=== PATIENT | female | born 1935 | race African-American/Black ===

== ENCOUNTER 2017-03-30 11:38 | Inpatient (IN) | payer OTHER ==
[~2017-03-30] VITALS: Ht 160 cm; Wt 86.0 kg
[~2017-03-30 11:38] MED LIST: ASPI-110 PO; OMEP20TA PO; PREG25 PO; VITA1000 PO
[2017-03-30] MEDS ORDERED: PROPOFOL 200 MG/20 ML AMP IV ONE (12:00)
[2017-03-30] MEDS ORDERED: ESMOLOL HCL 100 MG/10 ML VIAL IV ONE (12:00)
[2017-03-30] MEDS ORDERED: LACTATED RINGER'S 1000 ML INJ 1,000 ML IV ONE (12:00)
[2017-03-30] MEDS ORDERED: LIDOCAINE HCL 1% PF 5 ML AMPULE OTHER ONE (12:00)
[2017-03-30] MEDS ORDERED: DEXAMETHASONE SOD PHOS 4 MG/ML VIAL IV ONE (12:00)
[2017-03-30] MEDS ORDERED: ROCURONIUM INJ 50 MG/5 ML SYRINGE IV PUSH ONE (12:00)
[2017-03-30] MEDS ORDERED: GLYCOPYRROLATE 1 MG/5 ML SYRINGE IV PUSH ONE (12:00)
[2017-03-30] MEDS ORDERED: PHENYLEPH/NS 1000 MCG/10 ML SYR IV ONE (12:00)
[2017-03-30] MEDS ORDERED: NEOSTIGMINE 3 MG/3 ML SYR IV ONE (12:00)
[2017-03-30] MEDS ORDERED: LABETALOL HCL 100 MG/20 ML VIAL IV ONE (12:00)
[2017-03-30] MEDS ORDERED: ONDANSETRON HCL 4 MG/2 ML VIAL IV PUSH ONE (12:00)
[2017-03-30] MEDS ORDERED: MIDAZOLAM HCL 2 MG/2 ML VIAL IV ONE (12:00)
[2017-03-30] MEDS ORDERED: POVIDONE IODINE 5% (ANTISEPSIS KIT) 4 APPLICATIONS EACH NARE PRN (12:45)
[2017-03-30] MEDS ORDERED: CHLORHEXIDINE GLUCONATE 2 % 1 PACK (2 CLOTHS) TOPICAL PRN (12:45)
[2017-03-30] MEDS ORDERED: LACTATED RINGER'S 1000 ML IV PRN (12:45)
[2017-03-30] MEDS ORDERED: SODIUM CHLORID 0.9% 500 ML IV PRN (12:45)
[2017-03-30] MEDS ORDERED: INSULIN HUMAN REGULAR 1,000 UNITS/10 ML VIAL SQ PRN (12:45)
[2017-03-30] MEDS ORDERED: METOPROLOL TARTRATE 25 MG TAB PO PRN (12:45)
--- NOTE | 2017-03-30 13:15 | RADRPT ---
EXAM DATE/TIME: 03/30/2017 12:46 [place] COMPARISON: No previous studies available for comparison. INDICATIONS : Pre-op to evaluate for pneumonia, pneumothorax, or communicable diseases. MEDICAL HISTORY : None. SURGICAL HISTORY : None. ENCOUNTER: Initial ACUITY: 1 day PAIN SCORE: 0/10 LOCATION: Bilateral chest FINDINGS: A single view of the chest demonstrates diminished lung mild to minimal bibasilar atelectasis. Heart normal in size. The cardiomediastinal contours are unremarkable. Osseous structures are intact. CONCLUSION: Bibasilar atelectasis. Shane Valdivia MD on March 30, 2017 at 13:12 Board Certified Radiologist. This report was verified electronically.
[2017-03-30] MEDS ORDERED: LIDOCAINE 1%/EPINEPHrine 1:100,000 SOLN 50 ML VIAL ONE (13:22)
[2017-03-30] MEDS ORDERED: BUPIVACAINE/EPINEPHRINE 0.5% PF 10 ML VIAL ONE (13:22)
[2017-03-30] MEDS ORDERED: ACETAMINOPHEN 1000 MG/100 ML 100 ML IV ONE (13:31)
[2017-03-30] MEDS ORDERED: FAMOTIDINE 20 MG/2 ML VIAL ONE (13:32)
--- NOTE | 2017-03-30 13:40 | PD.HP.UP ---
H&P Update Note The Pre-Admit History and Physical Examination regarding the above named patient was reviewed (including, but not limited to, vital signs, heart, lungs, co-morbid conditions), and upon re-examination it is noted that: the patient's condition has not significantly changed since the last examination. Tarun Major MD Mar 30, 2017 13:40
[2017-03-30] MEDS ORDERED: ceFAZolin 2 GM PREMIX 50 ML ONE (14:15)
[2017-03-30] MEDS ORDERED: metroNIDAZOLE 500 MG INJ 100 ML IV ONE (14:15)
[2017-03-30] MEDS ORDERED: DO NOT ADM ANY ANTICOAGULANT DRUGS PRN (15:38)
[2017-03-30] MEDS ORDERED: ACETAMINOPHEN/HYDROcodone 325 MG/5 MG TAB PO PRN ×2 (15:45)
[2017-03-30] MEDS ORDERED: ACETAMINOPHEN 325 MG TAB PO PRN (15:45)
[2017-03-30] MEDS ORDERED: KETOROLAC TROMETHAMINE 30 MG/ML (IVP) VIAL IVP PRN (15:45)
[2017-03-30] MEDS ORDERED: SODIUM CHLORIDE 0.9% FLUSH 5 ML FLUSH IVF PRN (15:45)
[2017-03-30] MEDS ORDERED: ENALAPRILAT 2.5 MG/2 ML VIAL IV PUSH PRN (15:45)
[2017-03-30] MEDS ORDERED: POTASSIUM CHLOR 20 MEQ PREMIX 100 ML IV PRN (15:45)
[2017-03-30] MEDS ORDERED: ONDANSETRON HCL 4 MG/2 ML VIAL IV PUSH PRN (15:45)
[2017-03-30] MEDS ORDERED: POTASSIUM CHLOR 40 MEQ PREMIX 100 ML IV PRN (15:45)
[2017-03-30] MEDS ORDERED: NALOXONE HCL 0.4 MG/ML AMP IV PUSH PRN (15:45)
[2017-03-30] MEDS ORDERED: BUPIVACAINE HCL PF 0.5% 30 ML VIAL NB SCH (15:45)
[2017-03-30] MEDS ORDERED: Post-op Orders (for Pharmacy) MISC XX ONE (15:45)
[2017-03-30] MEDS ORDERED: MORPHINE SULFATE 30 MG/30 ML PCA IV SCH (15:45)
[2017-03-30] MEDS ORDERED: BENZOCAINE 6 MG/MENTHOL 10 MG LOZENGE BUCCAL PRN (15:45)
[2017-03-30] MEDS ORDERED: ENALAPRILAT 1.25 MG/ML VIAL IV PUSH PRN (15:45)
[2017-03-30] MEDS: D5-NS + KCL 20 MEQ INJ 1,000 ML IV SCH ×2 (16:00→23:33)
[2017-03-30 18:00] VITALS: BP 141/64; PULSE 60; RESP 16; TEMP 96.5; O2SAT 95
[2017-03-30 20:00] VITALS: BP 119/57; PULSE 78; RESP 16; TEMP 96.8; O2SAT 95
[2017-03-30] MEDS: SODIUM CHLORIDE 0.9% FLUSH 5 ML FLUSH IVF SCH (21:00)
[2017-03-30] MEDS: PCA - TOTAL MG MORPHINE DELIVERED PER SHIFT SCH (21:07)
[2017-03-30] MEDS: METOCLOPRAMIDE HCL 10 MG/2 ML VIAL IVS SCH (21:13)
[2017-03-30] MEDS: metroNIDAZOLE 500 MG INJ 100 ML IV SCH (23:32)
[2017-03-31] VITALS: BP 121/58; PULSE 74; RESP 16; TEMP 97.1; O2SAT 95
[2017-03-31 04:48] VITALS: BP 114/55; PULSE 79; RESP 16; TEMP 97.6; O2SAT 98
[2017-03-31] MEDS: PCA - TOTAL MG MORPHINE DELIVERED PER SHIFT SCH ×3 (06:00→20:39)
[2017-03-31 06:02] LABS: AUTOMATED NEUTROPHIL # 8.5 TH/MM3 (1.8-7.7); BASOPHIL % 0.3 % (0.0-2.0); HEMATOCRIT 41.2 % (35.0-46.0); HEMO FLAGS DIFF FINAL; LYMPH % 8.2 % (9.0-44.0); LYMPHOCYTE # 0.8 TH/MM3 (1.0-4.8); MEAN CELL VOLUME 84.6 FL (80.0-100.0); MEAN CORPUSCULAR HEMOGLOBIN 27.8 PG (27.0-34.0); MEAN CORPUSCULAR HGB CONC 32.8 % (32.0-36.0); MONO % 7.6 % (0.0-8.0); NEUT % 83.9 % (16.0-70.0); PLATELET COUNT 193 TH/MM3 (150-450); RED BLOOD COUNT 4.88 MIL/MM3 (4.00-5.30); RED CELL DISTRIBUTION WIDTH 14.3 % (11.6-17.2); WHITE BLOOD COUNT 10.2 TH/MM3 (4.0-11.0)
[2017-03-31] MEDS: metroNIDAZOLE 500 MG INJ 100 ML IV SCH ×2 (06:03→15:28)
[2017-03-31] MEDS: D5-NS + KCL 20 MEQ INJ 1,000 ML IV SCH ×2 (06:03→16:53)
[2017-03-31 06:25] LABS: POTASSIUM 4.6 MEQ/L (3.5-5.1)
[2017-03-31 08:00] VITALS: BP 111/56; PULSE 82; RESP 17; TEMP 98.4; O2SAT 95
[2017-03-31] MEDS: PANTOPRAZOLE SOD 40 MG DELAYED RELEASE TAB PO SCH (09:00)
[2017-03-31] MEDS: SODIUM CHLORIDE 0.9% FLUSH 5 ML FLUSH IVF SCH ×2 (09:00→20:36)
[2017-03-31] MEDS: METOCLOPRAMIDE HCL 10 MG/2 ML VIAL IVS SCH ×2 (10:21→20:36)
[2017-03-31] MEDS: PANTOPRAZOLE SODIUM 40 MG VIAL IVP SCH (10:21)
[2017-03-31 12:00] VITALS: BP 120/59; PULSE 81; RESP 16; TEMP 98.2; O2SAT 96
[2017-03-31 16:00] VITALS: BP 120/59; PULSE 87; RESP 16; TEMP 99.7; O2SAT 97
[2017-03-31] MEDS ORDERED: PREGABALIN 25 MG CAP PO PRN (16:45)
[2017-03-31 20:00] VITALS: BP 143/69; PULSE 83; RESP 22; TEMP 99.2; O2SAT 97
[2017-03-31] MEDS: ALVIMOPAN 12 MG CAPSULE PO SCH (20:36)
--- NOTE | 2017-03-31 21:12 | HHI.PR ---
Subjective Remarks C/R Surg POD # 1 afebrile, VSS UO good ct PO Objective - Vital Signs Date Time Temp Pulse Resp B/P (MAP) Pulse Ox O2 Delivery O2 Flow Rate FiO2 03/31/17 20:39 18 03/31/17 16:00 99.7 87 120/59 (79) 97 03/30/17 17:30 Nasal Cannula 2 Result Diagram: 03/31/17 0534 03/31/17 0534 Objective Remarks PE alert Abd - soft, wound dry, min tympany A/P Assessment and Plan Imp: stable post-op OOB decr IVF dc Tarun Duke AM, MD Mar 31, 2017 21:12
--- NOTE | 2017-03-31 23:12 | MP ---
cc: JN WILLIAM M.D. DATE OF SURGERY: 03/30/2017 PREOPERATIVE DIAGNOSIS: Incarcerated ventral hernia. History of colon cancer. PROCEDURE: 1. Exploratory laparotomy with repair of ventral hernia. 2. Repair of small bowel enterotomy. POSTOPERATIVE DIAGNOSIS: Incarcerated ventral hernia. History of colon cancer. SURGEON: Dr. Jn William PROCEDURE: The patient was placed in the supine position. After adequate general anesthesia her abdomen was prepped with Betadine solution and draped in the usual sterile fashion. The previous transverse incision was reopened along the middle portion identifying a hernia sac pretty readily in the subcutaneous tissue. This was dissected down elevating the umbilicus off the hernia sac and entering the hernia sac as the fascial level was approached. The hernia sac was excised from the subcu tissue defining the extent of the hernial defect. There did appear to be quite a bit of entrapped small bowel and omentum within the hernia and this was carefully removed and freed up to the abdomen. In doing so, one loop of bowel was severely adherent to the fascia and required repair of a serosal tear, which was done by firing the MARIAN stapler across the antimesenteric of the bowel closing the enterotomy with a TA 60 stapler. The bowel was then returned to the abdominal cavity. Additional adhesions were taken down further opening up and defining the perineal cavity. There did not appear to be any signs of recurrent tumor. The liver, however, could not be easily visualized. After mobilizing the skin across the anterior rectus fascia both above and below the incision, there appeared to be sufficient good fascia for a primary closure. Attenuated fascia and sac were excised from the fascial defect and the defect closed using a #1 PDS suture in a running fashion to bring both layers of the abdominal wall together in a fairly secure closure. There did not appear to be undue tension on the repair. The subcu tissue was then irrigated copiously with normal saline. Adequate hemostasis achieved at all sites. The subcu tissue closed in several layers using interrupted Vicryl sutures to obliterate the space and a running subcu Vicryl to close the skin. The wound area washed with normal saline and dried, sterile dressing of Telfa and gauze applied. The patient tolerated the procedure quite well and was brought to the recovery room in stable condition. Sponge and needle counts were correct at the end of the procedure. MD NAOMI Carter /9:59 PM /10:57 PM
[2017-03-31] MEDS: FUROSEMIDE 20 MG/2 ML VIAL IV PUSH SCH (23:41)
[2017-04-01] VITALS: BP 145/60; PULSE 87; RESP 20; TEMP 99.2; O2SAT 97
[2017-04-01 04:00] VITALS: BP 137/66; PULSE 90; RESP 20; TEMP 98.9; O2SAT 98
[2017-04-01] MEDS: PCA - TOTAL MG MORPHINE DELIVERED PER SHIFT SCH (05:07)
--- NOTE | 2017-04-01 07:33 | EKG ---
Date Performed: 03/30/2017 Time Performed: 12:33:50 PTAGE: 81 years EKG: Sinus rhythm LOW QRS VOLTAGE IN PRECORDIAL LEADS NONSPECIFIC T WAVE CHANGES ANTERIORLY Compared to prior tracing no significant change BORDERLINE ECG PREVIOUS TRACING : 03/24/2011 12.14 DOCTOR: Memo Stout Interpretating Date/Time 04/01/2017 07:32:46
[2017-04-01 08:00] VITALS: BP 131/61; PULSE 91; RESP 16; TEMP 98.7; O2SAT 94
[2017-04-01 08:10] LABS: AUTOMATED NEUTROPHIL # 6.5 TH/MM3 (1.8-7.7); BASOPHIL % 0.3 % (0.0-2.0); EOSINOPHIL % 0.3 % (0.0-4.0); HEMATOCRIT 37.9 % (35.0-46.0); HEMO FLAGS DIFF FINAL; LYMPH % 17.1 % (9.0-44.0); LYMPHOCYTE # 1.6 TH/MM3 (1.0-4.8); MEAN CELL VOLUME 84.1 FL (80.0-100.0); MEAN CORPUSCULAR HEMOGLOBIN 28.5 PG (27.0-34.0); MEAN CORPUSCULAR HGB CONC 33.8 % (32.0-36.0); MONO % 10.4 % (0.0-8.0); NEUT % 71.9 % (16.0-70.0); PLATELET COUNT 176 TH/MM3 (150-450); WHITE BLOOD COUNT 9.1 TH/MM3 (4.0-11.0)
[2017-04-01] MEDS: PANTOPRAZOLE SODIUM 40 MG VIAL IVP SCH (09:00)
[2017-04-01] MEDS: SODIUM CHLORIDE 0.9% FLUSH 5 ML FLUSH IVF SCH (09:00)
[2017-04-01 09:04] LABS: BICARBONATE 25.2 MEQ/L (21.0-32.0); POTASSIUM 3.7 MEQ/L (3.5-5.1)
[2017-04-01] MEDS: ALVIMOPAN 12 MG CAPSULE PO SCH (10:13)
[2017-04-01] MEDS: FUROSEMIDE 20 MG/2 ML VIAL IV PUSH SCH (10:13)
[2017-04-01] MEDS: PANTOPRAZOLE SOD 40 MG DELAYED RELEASE TAB PO SCH (10:13)
[2017-04-01] MEDS: METOCLOPRAMIDE HCL 10 MG/2 ML VIAL IVS SCH (10:14)
[2017-04-01] MEDS ORDERED: HYDR-3516 PO (10:34)
--- NOTE | 2017-04-01 11:24 | HHI.PR ---
Subjective Remarks C/R Surg POD # 2 afebrile, VSS UO good ct PO +flatus Objective - Vital Signs Date Time Temp Pulse Resp B/P (MAP) Pulse Ox O2 Delivery O2 Flow Rate FiO2 04/01/17 08:00 98.7 91 16 131/61 (84) 94 04/01/17 07:42 Room Air 03/30/17 17:30 2 Result Diagram: 04/01/17 0703 04/01/17 0703 Objective Remarks PE alert Abd - soft, wound dry, min tympany A/P Assessment and Plan Imp: OOB decr IVF dc plans Tarun Major MD Apr 01, 2017 11:24
[2017-04-01 12:00] VITALS: BP 120/57; PULSE 89; RESP 17; TEMP 97.2; O2SAT 95
== END 2017-04-01 16:19 | disposition home or self-care (01) | DRG 330 ==
LOC: HSDC 11:38 → HSDI 15:46 → N07B 18:01
PROVIDERS: ADMIT Colon & Rectal Surgery; ATTEND Colon & Rectal Surgery
PROC: 0WQF0ZZ Repair Abdominal Wall, Open Approach (ICD-10-PCS; 2017-03-30)
PROC: 0DQ80ZZ Repair Small Intestine, Open Approach (ICD-10-PCS; principal; 2017-03-30 14:00)
DX: K43.6 Other and unspecified ventral hernia with obstruction, without gangrene (principal); K91.72 Accidental puncture and laceration of a digestive system organ or structure during other procedure; E66.9 Obesity, unspecified; K21.9 Gastro-esophageal reflux disease without esophagitis; Y83.8 Other surgical procedures as the cause of abnormal reaction of the patient, or of later complication, without mention of misadventure at the time of the procedure; Z85.038 Personal history of other malignant neoplasm of large intestine
CPT/HCPCS: 71010; 80048; 85025; 93005; 94150; C9113; J0131; J0690; J1100; J1885; J1940; J2250; J2270; J2370; J2405; J2710; J2765; J3010; J3480; J7120